=== PATIENT | female | born 1995 | race Two or more races ===

== ENCOUNTER 2019-02-07 01:07 | Emergency (ER) | payer OTHER ==
[~2019-02-07] VITALS: Ht 154.9 cm; Wt 47.6 kg
== END 2019-02-07 03:13 | disposition home or self-care (01) ==
LOC: ER 01:07
DX: S61.411A Laceration without foreign body of right hand, initial encounter (principal); W25.XXXA Contact with sharp glass, initial encounter; Y93.89 Activity, other specified; Y92.511 Restaurant or cafe as the place of occurrence of the external cause; Y99.8 Other external cause status